=== PATIENT | female | born 1990 | race Caucasian/White ===

== ENCOUNTER 2016-09-18 19:40 | Observation (INO) | payer OTHER ==
[2016-09-18] MEDS ORDERED: Lactated Ringer's 1,000 ML IV ONE (20:25)
[2016-09-18 20:39] LABS: BASOPHILS % (AUTO) 0.1 % (0-3); EOSINOPHILS % (AUTO) 0.3 % (0-5); MONOCYTES % (AUTO) 4.1 % (4-12); Mean Corpuscular Hemoglobin 30.9 pg (27.0-35.0); Mean Corpuscular Volume 91.5 fL (81-100); NEUTROPHILS % (AUTO) 86.1 % (40-74); Platelet Count 235 bil/L (150-400)
[2016-09-18 20:58] LABS: APPEARANCE,URINE CLOUDY (CLEAR,HAZY); COLOR,URINE YELLOW (YELLOW); OCCULT BLOOD,URINE NEGATIVE (NEGATIVE); UROBILINOGEN,URINE NORMAL (NORMAL)
[2016-09-18] MEDS ORDERED: Promethazine 50 mg Rectal Suppository RECTAL PRN (21:45)
[2016-09-18] MEDS: Ondansetron 8 mg ODT Tablet PO PRN (21:47)
[2016-09-18] MEDS ORDERED: KCl 40 mEq/D5W 500 mL 40 MEQ in IV Premix 1 EACH IV ONE (21:50)
[2016-09-18] MEDS ORDERED: Lactated Ringer's 1,000 ML IV SCH (22:51)
[2016-09-18] MEDS ORDERED: Acetaminophen IV 1,000 MG in IV Premix 1 EACH IV ONE (22:55)
[2016-09-18] MEDS ORDERED: Promethazine Inj 12.5 MG in 0.9% Sodium Chloride 50 ML IV ONE (22:55)
--- NOTE | 2016-09-19 00:07 | HP ---
[address] [address] HISTORY AND PHYSICAL PATIENT: KAITY CHEW : 1990 MR#: [id number] ADMIT: 09/18/2016 JOB ID: [id number] HISTORY OF PRESENT ILLNESS: This is a 25-year-old, 2, para 0-0-1-0, at 37 weeks and 0 days with expected date of delivery of October 09, 2016 dated by 18 weeks ultrasound. Patient presented to triage room with complaint of nausea and vomiting. This started at 1 p.m. followed by diarrhea that started at around 6 p.m. Patient unable to keep any food or fluid down, having one or three bowel movements per hour, and denies any history of fever though she been feeling cold and some episodes of sweating in the last two days. Denies ill contact. Denies blood in stool. The patient reports good movement. No vaginal bleeding. No loss of fluid. Initially, she noted some cramping; that has resolved. Reports generalized body ache and crampy muscles. No history of rash. This complicated with: 1. 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 Plan to be induced at the [facility] at 39 weeks and to collect cord blood at for iFISH with reflex to karyotype if abnormal and to microarray if normal. 2. Methadone use for history of heroin abuse. Last heroin use was May 2016. Patient currently on methadone. 3. Depression and anxiety with no medications. 4. Obesity. Current BMI 32.45. 5. Late to care. PAST MEDICAL HISTORY: 1. History of MRSA infection with debridement. 2. Anxiety and depression. 3. Obesity. 4. Methadone use. 5. History of heroin abuse. PAST SURGICAL HISTORY: Debridement of abscess (MRSA infection in the left shoulder). MEDICATIONS: 1. vitamins. 2. Methadone 135 mg daily. Per patient, plan to increase the dose to 145 mg daily starting 09/19/16. 3. Tylenol p.r.n. SOCIAL HISTORY: Denies smoking, denies alcohol use. Denies any drug abuse besides the past history of heroin abuse, last use May 2016. Currently on methadone. Denies any recent history of any drug abuse. FAMILY HISTORY: Noncontributory. PAST OBSTETRIC HISTORY: History of spontaneous , September 2015. GYNECOLOGICAL HISTORY: Last menstrual period unknown. Menarche at age 13. REVIEW OF SYSTEM: Negative except for the items mentioned in the history of presenting illness. PHYSICAL EXAMINATION: Vital signs: Blood pressure at presentation 127/97, 156/96, then 130/92, heart rate 100, respiratory rate 18, temperature 36.0. General: Alert, oriented to time, place, and person. Head is normocephalic, atraumatic. Eyes normal. Neck is supple. Chest: Equal air entry bilaterally. No added sounds. Cardiovascular: S1 plus S2 plus 0. Abdomen gravid. No tenderness. Positive pulses in all four extremities. heart tones: Baseline 125, moderate variability, positive accelerations, no decelerations, 30 minutes of interrupted strip was obtained and reviewed secondary to the patient's instability in bed with the nausea and vomiting. Contractions rare. Cervical exam is fingertip thick, 50% effaced, -4. Exam was done at 19:47 by triage room RN and repeated again at 22:15 by RN with no change. LABORATORIES: White blood cells 17.6, hemoglobin 15.3, hematocrit 45.3% platelets 235. Sodium 135, potassium 4.4, chloride 98, bicarb of 18, BUN 13, creatinine 0.55, uric acid 4.4, AST 19, ALT 15, calcium 9.5. Urine drug screen negative except for methadone positive. Urine yellow. Specific gravity 1.03. Urine protein 30. Urine glucose negative. Occult blood negative, nitrite negative, bilirubin negative, leukocyte esterase trace, red blood cells 0-2, white blood cells 0-5, epithelial cells moderate, crystals none seen. Culture reflects indicated and pending. Urine protein creatinine ratio 0.36 with creatinine of 390 and total protein 141. labs: O-positive, antibody screening negative on July 22, 2016, hematocrit 38%, hemoglobin 12.6 on July 22, 2016. Varicella immune, rubella immune, RPR nonreactive, hepatitis B surface antigen negative, HIV negative. Urine culture negative. Gonorrhea and Chlamydia screen July 22, 2016 negative. Diabetes screening July 22, 2016 within normal limits 94. No Pap smear result reported. ASSESSMENT: This is a 25-year-old, 2, para 0-0-1-0, at 37 weeks and 0 days presented with gastroenteritis symptoms, history on methadone for heroin abuse and bilateral kidney enlargement. care was transferred from [place] to [facility]. Planned to be induced at 39 weeks at [facility] with immediate admission of the infant to NICU after delivery. PLAN: IV access was established with difficulty after several trials. Will observe overnight for hydration, n.p.o. overnight and start oral challenge in the morning. Morning labs ordered. Repeat basic metabolic panel and repeat protein creatinine ratio. Antiemetic ordered. Ambien p.r.n. for sleep and Tylenol p.r.n. for pain. INTERVAL HISTORY and PHYSICAL: No more nausea or vomiting. tolerating sips of water. Continue to have diarrhea. No fever T 36.8, BP WNL: 127/83, pulse 9. Labs: Urine protein creatinine ratio 0.15 Patient was discharged in the morning as she was able to tolerate orally with oral antiemetic, Follow up with primary OBGYN, [facility], is scheduled 09/23/16. LEYDA
[2016-09-19] MEDS: Ondansetron 2 mg/mL 2 mL Inj IVPUSH PRN ×2 (02:00→07:24)
[2016-09-19] MEDS: Ondansetron 8 mg ODT Tablet PO PRN (04:45)
[2016-09-19] MEDS ORDERED: PROM25TA14 PO (07:25)
[2016-09-19] MEDS ORDERED: ONDA8TAB10 PO (07:25)
[2016-09-19] MEDS ORDERED: PROM50SU5 RECTAL (07:25)
[2016-09-19] MEDS ORDERED: Methadone 10 mg/mL 30 mL Oral Concentration PO PRN (08:35)
[2016-09-19] MEDS ORDERED: Methadone 10 mg/mL Oral Concentrate PO ONE (10:07)
[2016-09-20 06:10] LABS: Hepatitis A Antibody IgM Negative (Negative); Hepatitis B Core Antibody IgM Negative (Negative)
== END 2016-09-19 12:13 | disposition home or self-care (01) ==
LOC: FBCO 19:40 → FBC 22:10
PROVIDERS: ADMIT Obstetrics & Gynecology; ATTEND Obstetrics & Gynecology
DX: O21.0 Mild hyperemesis gravidarum (principal); Z3A.37 37 weeks gestation of pregnancy; R19.7 Diarrhea, unspecified; O99.323 Drug use complicating pregnancy, third trimester; F14.90 Cocaine use, unspecified, uncomplicated; F11.10 Opioid abuse, uncomplicated; F41.8 Other specified anxiety disorders; E66.9 Obesity, unspecified; Z68.32 Body mass index [BMI] 32.0-32.9, adult; O09.30 Supervision of pregnancy with insufficient antenatal care, unspecified trimester; Z86.14 Personal history of Methicillin resistant Staphylococcus aureus infection; O35.8XX0 Maternal care for other (suspected) fetal abnormality and damage, not applicable or unspecified; Q63.9 Congenital malformation of kidney, unspecified
CPT/HCPCS: 36415; 80048; 81000; 82565; 82570; 84156; 84450; 84460; 84520; 84550; 85025; 86705; 86709; 86787; 87086; 87088; 87340; 87341; 87491; 87591; G0463; G0472; G0480; J0131; J2405; J7120